=== PATIENT | male | born 1955 | race Caucasian/White ===

== ENCOUNTER → 2018-05-27 12:09 | Outpatient (CLI) | payer OTHER, SELFPAY ==
--- NOTE | 2018-05-27 | DI.MRI.S_ITS ---
PROCEDURE: MR KNEE RT WO CON INDICATIONS: Pain in right lower leg TECHNIQUE: Noncontrast sagittal PD fast spin echo and T2 fast spin echo with fat saturation, sagittal 3-D FLASH with fat saturation; coronal T1 spin echo and PD fast spin echo with fat saturation, and axial PD fast spin echo with fat saturation through the knee. COMPARISON: [facility], CR, XR KNEE ARTHRITIC SERIES RT, 04/28/2018, 13:43. FINDINGS: Image quality: Excellent. Menisci: Lateral meniscus appears intact. Ill-defined macerated tear involving the posterior root, posterior horn and body of the medial meniscus with complete extrusion of the medial meniscal body. Cruciate ligaments: Marked internal signal change of the anterior and posterior cruciate ligaments. In particular, there is marked T2 hyperintensity involving the substance of the PCL diffusely. This could represent severe mucoid degeneration versus partial rupture of the ACL and PCL. Medial structures: The medial collateral ligament appears thickened although technically age-indeterminate. This could represent chronic low-grade sprain. Semimembranosus appears grossly intact although mild insertional tendinopathy. Visualized portions of the pes anserinus tendons appear normal. No abnormal bursal fluid. Lateral structures: The lateral collateral ligament, long and short heads of the biceps femoris tendon appear intact. The popliteus tendon appears normal; the popliteofibular ligament appears intact. The posterosuperior and anteroinferior popliteomeniscal fascicles appear intact. The arcuate and fabellofibular ligaments appear intact, on either side of the lateral inferior geniculate artery. Iliotibial band appears normal. Anterior structures: The quadriceps tendon appears intact. There is diffuse patellar tendinopathy with edema and heterogeneous signal change in the prepatellar and superficial infrapatellar regions. There is also thickening of the distal patellar tendon at the tibial tuberosity with adjacent fluid/edema. Patellar alignment is normal. No femoral trochlear dysplasia or ventral trochlear prominence. No edema in the infrapatellar fat pad. Bones and cartilage: No bone marrow contusions or fractures. Within the medial compartment, there is diffuse full-thickness loss of the femoral and tibial articular cartilage with underlying marrow edema. Within the lateral compartment, there is diffuse partial thickness loss of the femoral articular cartilage. The tibial cartilage demonstrates central signal change without focal defect. Within the patellofemoral compartment, there is diffuse surface fraying partial-thickness loss of the patellar and femoral trochlear articular cartilage. Joint space: No pathologic joint effusion. No Lucia's cyst is seen. IMPRESSION: Medial meniscal tear involving the posterior root, posterior horn and body with near complete extrusion of the body. Marked intrasubstance signal changes involving the anterior cruciate ligament as well as posterior cruciate ligament. This appearance could represent severe mucoid degeneration although cannot exclude (probably chronic) partial rupture of the ACL and PCL. Please correlate with clinical exam findings. Diffuse severe patellar tendinopathy. Degenerative joint disease as above, most pronounced in the medial compartment. Dictated by: Ramiro Vazquez M.D. on 05/27/2018 at 17:04 Approved by: Ramiro Vazquez M.D. on 05/27/2018 at 17:20
== END ==
PROVIDERS: PCP Physician Assistant; Visit Provider Physician Assistant
DX: S83.241A Other tear of medial meniscus, current injury, right knee, initial encounter (principal); M17.11 Unilateral primary osteoarthritis, right knee; M79.661 Pain in right lower leg
CPT/HCPCS: 73721

== ENCOUNTER → 2019-12-12 17:28 | Outpatient (ROUT) | payer OTHER, MEDICARE, SELFPAY ==
[2019-12-12 17:43] LABS: Add Manual Diff / Slide Review NO; Basophils Absolute Auto 0 /uL (0-100); Basophils Percent Auto 0.7 % (0-2); Eosinophils Absolute Auto 200 /uL (0-450); Eosinophils Percent Auto 2.9 % (2-4); Hematocrit 40.8 % (41-53); Hemoglobin 13.6 g/dL (13.5-17.5); Lymphocytes Absolute Auto 1700 /uL (1100-4500); Lymphocytes Percent Auto 29.5 % (25-40); Mean Corpuscular HGB Conc 33.5 % (30-36); Mean Corpuscular Hemoglobin 31.8 PG (26-34); Mean Corpuscular Volume 94.9 fL (80-100); Monocytes Absolute Auto 800 /uL (0-900); Monocytes Percent Auto 14.1 % (3-14); Neutrophils Absolute Auto 3000 /uL (1500-7000); Neutrophils Percent Auto 52.8 % (50-75); Platelet Count 214 X10^3/uL (150-400); Red Blood Cell Count 4.29 X10^6/uL (4.5-5.9); Red Cell Distribution Width 13.8 % (11.6-14.8); White Blood Cell Count 5.6 X10^3/uL (4.5-11.0)
[2019-12-12 18:10] LABS: Hemoglobin A1C% w Est Avg Glu 6.2 % (4.0-6.0)
[2019-12-12 18:36] LABS: TSH w/ Reflex to FT4 1.89 uIU/mL (0.47-4.68)
[2019-12-12 19:09] LABS: Alanine Aminotransferase 43 IU/L (<50); Albumin 4.4 g/dL (3.5-5.0); Albumin Globulin Ratio 1.6 (1.0-2.8); Alkaline Phosphatase 87 U/L (38-126); Aspartate Aminotransferase 49 IU/L (17-59); BUN Creatinine Ratio 20.9 (6-22); Bilirubin Total 0.6 mg/dL (0.2-1.3); Blood Urea Nitrogen 23 mg/dL (9-20); Calcium 9.8 mg/dL (8.4-10.2); Carbon Dioxide 27 mmol/L (22-32); Chloride 105 mmol/L (98-107); Cholesterol 224 mg/dL (140-199); Estimated Glomerular Filt Rate > 60.0 mL/min (>60); Globulin 2.8 g/dL (1.7-4.1); Glucose 124 mg/dL (80-110); HDL Cholesterol 91 mg/dL (40-60); HEMOLYSIS < 15 (0-50); LDL Cholesterol Calculated 96 mg/dL (<100); Potassium 4.5 mmol/L (3.4-5.1); Sodium 141 mmol/L (137-145); Total Protein 7.2 g/dL (6.3-8.2); Triglycerides 183 mg/dL (35-150)
[2019-12-14 15:49] LABS: PSA Total 1.77 ng/mL (< 4.01)
== END ==
PROVIDERS: PCP Physician Assistant; Visit Provider Physician Assistant
DX: Z12.5 Encounter for screening for malignant neoplasm of prostate (principal); I10 Essential (primary) hypertension; R35.0 Frequency of micturition; R53.83 Other fatigue; R63.5 Abnormal weight gain
CPT/HCPCS: 80053; 80061; 83036; 84153; 84154; 84443; 85025

== ENCOUNTER → 2020-12-25 09:02 | Outpatient (CLI) | payer OTHER, MEDICARE, SELFPAY ==
--- NOTE | 2020-12-25 | DI.RAD.S_ITS ---
PROCEDURE: XR CHEST 2V INDICATIONS: SHORTNESS OF BREATH TECHNIQUE: 2 views of the chest were acquired. COMPARISON: [facility], CHEST 2 VIEW, 12/29/2016, 10:14. [facility], CHEST 2 VIEW, 08/26/2016, 17:11. FINDINGS: Surgical changes and devices: None. Lungs and pleura: Lungs appear clear. No consolidation. No pleural effusions or pneumothorax. Mediastinum: Mediastinal contours are normal. Heart size is within normal limits and unchanged. Bones and chest wall: No suspicious bony abnormalities. Soft tissues appear unremarkable. IMPRESSION: No acute cardiopulmonary abnormality. Dictated by: hTai Hernandez M.D. on 12/25/2020 at 10:49 Approved by: Thai Hernandez M.D. on 12/25/2020 at 10:51
[2020-12-25 10:36] LABS: Add Manual Diff / Slide Review NO; Basophils Absolute Auto 0 /uL (0-100); Basophils Percent Auto 0.8 % (0-2); Eosinophils Absolute Auto 200 /uL (0-450); Eosinophils Percent Auto 3.9 % (2-4); Hematocrit 39.6 % (41-53); Lymphocytes Absolute Auto 1600 /uL (1100-4500); Lymphocytes Percent Auto 28.3 % (25-40); Mean Corpuscular HGB Conc 32.9 % (30-36); Mean Corpuscular Hemoglobin 31.7 PG (26-34); Mean Corpuscular Volume 96.4 fL (80-100); Monocytes Absolute Auto 800 /uL (0-900); Monocytes Percent Auto 14.6 % (3-14); Neutrophils Absolute Auto 2900 /uL (1500-7000); Neutrophils Percent Auto 52.4 % (50-75); Platelet Count 202 X10^3/uL (150-400); Red Blood Cell Count 4.11 X10^6/uL (4.5-5.9); Red Cell Distribution Width 14.5 % (11.6-14.8); White Blood Cell Count 5.5 X10^3/uL (4.5-11.0)
[2020-12-25 10:46] LABS: Hemoglobin A1C% w Est Avg Glu 6.5 % (4.0-6.0)
[2020-12-25 11:05] LABS: Alanine Aminotransferase 36 IU/L (<50); Albumin 4.2 g/dL (3.5-5.0); Albumin Globulin Ratio 1.4 (1.0-2.8); Alkaline Phosphatase 84 U/L (38-126); Aspartate Aminotransferase 42 IU/L (17-59); BUN Creatinine Ratio 17.7 (6-22); Bilirubin Total 0.5 mg/dL (0.2-1.3); Blood Urea Nitrogen 17 mg/dL (9-20); Calcium 9.5 mg/dL (8.4-10.2); Carbon Dioxide 26 mmol/L (22-32); Chloride 104 mmol/L (98-107); Cholesterol 224 mg/dL (140-199); Estimated Glomerular Filt Rate > 60.0 mL/min (>60); Globulin 2.9 g/dL (1.7-4.1); Glucose 147 mg/dL (80-110); HDL Cholesterol 84 mg/dL (40-60); HEMOLYSIS < 15 (0-50); LDL Cholesterol Calculated 122 mg/dL (<100); Potassium 4.2 mmol/L (3.4-5.1); Sodium 136 mmol/L (137-145); Total Protein 7.1 g/dL (6.3-8.2); Triglycerides 92 mg/dL (35-150)
[2020-12-25 11:09] LABS: HEMOLYSIS < 15 (0-50); Iron 96 ug/dL (49-181)
[2020-12-25 11:13] LABS: NT-proBNP (BNP-Adult 18+) 79 pg/mL (<125)
[2020-12-25 11:19] LABS: Percent Iron Saturation 26 % (20-50); Total Iron Binding Capacity 369 ug/dL (261-462); Transferrin 274 mg/dL (206-381)
[2020-12-25 11:36] LABS: TSH w/ Reflex to FT4 1.49 uIU/mL (0.47-4.68)
[2020-12-25 11:39] LABS: Ferritin 48 ng/mL (18-464)
== END ==
PROVIDERS: PCP Physician Assistant; Referring Provider Physician Assistant; Visit Provider Physician Assistant
DX: R06.02 Shortness of breath (principal); R42 Dizziness and giddiness; E78.2 Mixed hyperlipidemia
CPT/HCPCS: 36415; 71046; 80053; 80061; 82728; 83036; 83540; 83550; 83880; 84443; 85025

== ENCOUNTER → 2021-01-08 09:44 | Outpatient (CLI) | payer OTHER, MEDICARE, SELFPAY ==
[2021-01-08 10:58] LABS: COVID19 -Nasal RAPID Negative (Negative)
== END ==
PROVIDERS: PCP Physician Assistant; Referring Provider Internal Medicine; Visit Provider Internal Medicine
DX: Z20.822 Contact with and (suspected) exposure to COVID-19 (principal)
CPT/HCPCS: 87635

== ENCOUNTER → 2021-01-09 10:59 | Outpatient (CLI) | payer OTHER, MEDICARE, SELFPAY ==
--- NOTE | 2021-01-15 10:28 | PM.PFT.1 ---
Pulmonary Function Test Referral & Results Date Patient Seen: 01/09/21 Requesting provider: Aditi Baez Results: The spirometry demonstrates an FVC of 4.21 L which is 80% of predicted. The FEV1 was measured at 3.17 L which is 81% of predicted. The FEV1/FVC ratio was 75 which is 101% of predicted. Following the administration of bronchodilator there was an 11% improvement in FEV1 and a 37% improvement in FEF 25-75%. Lung volumes show an SVC of 4.97 L which is 95% of predicted. The diffusing capacity was measured at 31.27 which is 82% of predicted. The maximum voluntary ventilation was normal Interpretation: This study demonstrates perhaps very mild obstructive lung disease based on slight reduction FEV1 although FEV1/FVC ratio was preserved there is some benefit following bronchodilator administration as demonstrated above with improvement in FEF 25-75% and very minimal improvement in FEV1 The remainder of the study should be considered normal
== END ==
PROVIDERS: PCP Physician Assistant; Referring Provider Physician Assistant; Visit Provider Physician Assistant
DX: R06.02 Shortness of breath (principal)
CPT/HCPCS: 94060; 94726; 94729

== ENCOUNTER → 2021-01-22 10:07 | Outpatient (CLI) | payer MEDICARE, OTHER, SELFPAY ==
[2021-01-22 11:30] LABS: COVID19 -Nasal RAPID Negative (Negative)
== END ==
PROVIDERS: PCP Physician Assistant; Visit Provider Physician Assistant
DX: Z01.812 Encounter for preprocedural laboratory examination (principal); Z20.822 Contact with and (suspected) exposure to COVID-19
CPT/HCPCS: 87635; C9803

== ENCOUNTER → 2021-01-24 15:00 | Outpatient (CLI) | payer MEDICARE, OTHER, SELFPAY ==
--- NOTE | 2021-01-24 23:45 | DI.NM.S_ITS ---
DATE OF SERVICE: 01/24/2021 PROCEDURE PERFORMED: Standard exercise treadmill stress test without imaging. ORDERING PROVIDER: Aditi Baez PA-C. INDICATION: The patient is a 65-year-old male with exertional dyspnea. FINDINGS: 1. The patient was able to exercise for 4 minutes 45 seconds on a standard Mendel protocol suggesting moderate-severely reduced exercise capacity with an BECK of +32%, achieving 7.0 METs. 2. The patient had a borderline accelerated heart rate response to exercise with a resting heart rate of 100 BPM that increased to a maximum of 156 BPM (101% of his predicted maximum). He had a moderate hypertensive blood pressure response to exercise with a resting blood pressure of 130/80 that increased to a maximum of 220/80. 3. He had no chest discomfort or anginal pain with exercise but had limiting severe dyspnea. Oxygen saturations remained 95 to 97% on room air throughout the study 4. Resting ECG shows sinus rhythm with a left anterior fascicular block with associated lateral T-wave abnormality but normal ST segments. With exercise, there were no significant ST-segment shifts. There were rare isolated PVCs, but no complex ectopy. IMPRESSION: 1. Normal exercise treadmill study with no ECG evidence for ischemia. 2. Moderate-severely reduced exercise capacity with limiting severe dyspnea, but no chest discomfort. He had an accelerated heart rate response to exercise and a hypertensive blood pressure response. Oxygen saturation remained normal throughout. Tobias Rowe - AIDA/marcelle/henrique doc#: [id number]/job#: [id number] dd: 01/24/2021 16:49:00 dt: 01/24/2021 17:42:00 DICTATING MD/COPIES TO: Karri Huitron MD; Aditi Baez PA-C COPIES MNE: IZZY;
== END ==
PROVIDERS: PCP Physician Assistant; Referring Provider Physician Assistant; Visit Provider Physician Assistant
DX: R06.09 Other forms of dyspnea (principal)
CPT/HCPCS: 93017

== ENCOUNTER → 2021-01-31 08:34 | Outpatient (CLI) | payer MEDICARE, OTHER, SELFPAY ==
--- NOTE | 2021-01-31 | DI.ECHO.S_ITS ---
[facility]---------+ [facility] +---------+ : : [address] : : : : [id number] : : : : Phone: [phone]---------+ Echocardiogram Report + + :Name: EVELYN CORTEZ Study Date: 01/31/2021 Height: 74 in : :[facility] ReadingLocation: Weight: 335 lb : : Gender: Male BSA: 2.7 m2 : :: 1955 Age: 65 yrs BP: 173/95 mmHg: :Reason For Study: SOB : :Ordering Physician: ART, : :ANDREW Performed By: Moises Toney : :Referring: ANDREW CORDOVA : + + Interpretation Summary 1) Normal left ventricular thickness, size, wall motion, and systolic function (EF 55-60%). 2) Normal right ventricular size and function. 3) No significant valvular abnormalities. 4) Pulmonary artery pressures cannot be estimated because of the lack of a measurable TR jet velocity but the IVC suggests a CVP of around 3 mmHg. 5) No prior Echo available for comparison. Procedure: A two-dimensional transthoracic echocardiogram with color flow and Doppler was performed. The study quality was technically adequate. There is no prior echocardiogram noted for this patient. The patient was in sinus rhythm with heart rates between 85-100 bpm during the exam. Left Ventricle: The left ventricle is normal in size and wall thickness. Left ventricular systolic function is normal. The ejection fraction is estimated to be 55-60%. There are no focal wall motion abnormalities. Diastolic parameters suggest probable normal left ventricular diastolic function and normal filling pressures. Right Ventricle: The right ventricle is normal in size and function. Atria: Both atria are normal in size. There is no Doppler evidence for an interatrial shunt. Mitral Valve: The mitral valve is normal in structure and function. There is no mitral regurgitation noted. Aortic Valve: The aortic valve is normal in structure and function. There is no aortic valve stenosis. No aortic regurgitation is present. Tricuspid Valve: The tricuspid valve is normal in structure and function. There is a trace or physiologic amount of tricuspid regurgitation. Pulmonary artery pressures cannot be estimated because of the lack of a measurable TR jet velocity but the IVC suggests a CVP of around 3 mmHg. Pulmonic Valve: The pulmonic valve is not well visualized. There is no pulmonic valvular regurgitation. Great Vessels: The aortic root is normal size. The dimensions of the ascending aorta are normal. The IVC is of normal diameter and collapses greater than 50% with a sniff. This suggests a low right atrial pressure of 3 mm Hg. Pericardium/ Pleura There is no pericardial effusion. There is no pleural effusion. MMode/2D Measurements & Calculations LVIDd: 5.6 cm LVOT diam: 2.5 cm LVIDs: 3.4 cm Ao root diam: 3.6 cm FS: 39.1 % asc Aorta Diam: 3.1 cm IVSd: 1.1 cm LVPWd: 1.0 cm LV moon. diameter/BSA (cm/m^2): 2.1 LV sys. diameter/BSA (cm/m^2): 1.3 LA A2 area: 18.5 cm2 RA long axis: 6.5 cm LA A4 area: 16.3 cm2 RA area: 18.1 cm2 LA length (vol): 5.3 cm RA vol: 43.1 ml LA vol: 48.7 ml RA : 15.9 ml/m2 LA vol index: 18.0 ml/m2 RVD1 (basal): 3.7 cm TAPSE: 2.3 cm Doppler Measurements & Calculations Ao V2 max: 167.4 cm/sec LVOT Max Rohit: 135.3 cm/sec Ao V2 mean: 120.5 cm/sec LV V1 max P.3 mmHg Ao max P.2 mmHg LV V1 VTI: 28.1 cm Ao mean P.3 mmHg JACQUIE(I,D): 4.2 cm2 Ao V2 VTI: 32.1 cm JACQUIE(V,D): 3.9 cm2 sev ratio: 0.88 JACQUIE indexed to BSA (cm^2/m^2): 1.6 MV E max rohit: 105.1 cm/sec PA pr(Accel): 43.0 mmHg MV A max rohit: 109.1 cm/sec MV E/A: 0.96 Med Peak E' Rohit: 8.9 cm/sec E/E' med: 11.8 Lat Peak E' Rohit: 11.6 cm/sec E/E' lat: 9.0 E/e' average: 10.4 MV dec time: 0.17 sec SV(LVOT): 135.1 ml Reading Physician:12:22 PM
== END ==
PROVIDERS: PCP Physician Assistant; Referring Provider Physician Assistant; Visit Provider Physician Assistant
DX: R06.02 Shortness of breath (principal)
CPT/HCPCS: 93306

== ENCOUNTER → 2022-07-08 13:52 | Outpatient (CLI) | payer MEDICARE, OTHER, SELFPAY ==
--- NOTE | 2022-07-15 14:08 | DIAB.MNT ---
Initial Diabetes Medical Nutrition Therapy Assessment Name: Tobias Rowe Date: 07/08/22 Time: 2-3p Dx: Type II Diabetes Provider: Nestor Collado presents today for initial visit accompanied by his , Kathleen. +FH of DM with father. Also paternal hx of CVD, HLD, and RI. Newly dx with T2Dm with HgA1c of 6.6%. States he does not feel any symptoms and is surprised by this diagnosis. Reports he eats pretty good, though does endorse excessive wine intake. Often 3 servings per night but per food journal may be up to 4 +/- shot of liquor. Has cut down on coffee over the last year. States he is trying to lose weight. Has already lost a reported 15# since diagnosis. States he has sleep apnea but not currently using cpap due to discomfort and loud sound. Diet Recall: 7a: coffee, eggs, sausage or plain oats x 1pkt with berries 1p: low crab tortilla with meat and cheese or nothing or nuts 730-8p: veggies, lean burger meat and cheese States he often gets too busy at work to eat lunch and limited appetite at dinner. Very busy with work. Anthropometrics: Ht: 5'11 Wt: 344# reported Weight history: States he was 360# at diagnosis. Physical Activity: 1.5 mi + at work. Trying to walk more at work. Had recent foot injury at work, but plans to walk on weekends. Current steps 2732-0099 per day. Self-Monitoring Blood Glucose: 3-4 x per week. Occasional elevations in the morning, but unclear if these are truly fasting numbers. Currently regimen is checking BG at random times in the day. Could be after coffee. Date Pre Post Pre Post Pre Post HS 05/31 127 06/02 173 06/05 112 9/6 113 06/24 136 07/07 154 <1hr 07/08 135 Diabetes Medications: None Pertinent Labs: 04/2022 HgA1c 6.6% T Cholesterol: 216 H HDL: 76 LDL: 120 H Past Medical History: T2Dm Obesity Mixed HLD cataract HTN GERD KOLE Restless legs syndrome osteoarthritis of r knee Nutrition Rx: Carbohydrates: Meal:45g based on diet recall Snack: 15-30g Nutrition Diagnosis: - Nutrition knowledge deficit r/t new dx of T2DM aeb HgA1c, referral, and pt report - Physical inactivity r/t foot injury aeb pt report - Excessive ETOH intake r/t stage of change and knowledge deficit aeb pt report and diet recall Intervention: This participant was very receptive. Provided appropriate educational handouts. Discussed the following topics: Completed intake assessment. Discussed barriers to care. Pathophysiology of T2DM HgA1c, its correlation to blood glucose numbers, and rationale for goal Importance of self-monitoring, how often, and when to check. Suggested checking at different times to evaluate meals Plate Method, impact of macronutrients on blood sugar, meal timing, carbohydrate counting, pairing macronutrients and spreading out carbohydrates for better blood glucose management Recommended servings for carbohydrates at meals and snacks Heart health nutrition ETOH recs and impact on health Impact of sleep on BG Role of physical activity and following guidelines for safety Created SMART goals for patient self-care and success. Goals: Start walking this weekend 20-30 min per day Keep wine to 2 servings or less Fit in a lunch/snack mid day Follow-up: RITA OROZCO follow-up in 4 weeks. Offered DSME classes. With his current schedule he may opt for October classes. 1:1 f/u scheduled. Kimberly Phillips RDN, JAYSHREEES Certified Diabetes Care and Process Controller P: [phone] Thank you for this referral
== END ==
PROVIDERS: PCP Physician Assistant; Referring Provider Internal Medicine; Visit Provider Internal Medicine
DX: E11.9 Type 2 diabetes mellitus without complications (principal); Z71.3 Dietary counseling and surveillance
CPT/HCPCS: 97802

== ENCOUNTER 2024-02-06 16:34 | Emergency (ER) | payer MEDICARE, OTHER, SELFPAY ==
[2024-02-06] VITALS (14 sets, daily range): BP systolic 117–159; BP diastolic 56–88; PULSE 78–127; RESP 16–29; TEMP 37.1–38.2; O2SAT 94–98; BMI 43.0
--- NOTE | 2024-02-06 16:49 | DI.RAD.S_ITS ---
PROCEDURE: XR CHEST 1V INDICATIONS: Shortness of breath TECHNIQUE: One view of the chest was acquired. COMPARISON: [facility], CR, XR CHEST 2V, 12/25/2020, 9:06. FINDINGS: Surgical changes and devices: None. Lungs and pleura: Low lung volumes which exaggerate pulmonary markings. Lungs are clear. No pleural effusions or pneumothorax. Mediastinum: Mediastinal contours appear normal. Heart size is normal. Bones and chest wall: No suspicious bony lesions. Overlying soft tissues appear unremarkable. IMPRESSION: No acute cardiopulmonary abnormality is seen. Dictated by: Arturo Cali M.D. on 02/06/2024 at 16:17 Approved by: Arturo Cali M.D. on 02/06/2024 at 16:20
--- NOTE | 2024-02-06 17:15 | ED.MALEGU ---
HPI - Male Genitourinary <Arturo Gutierres MD - Last Filed: 02/16/24 07:41> General Chief complaint: Shortness of Breath/Dyspnea Stated complaint: sweating, chills, 100.6 temp, SOB Time Seen by Provider: 02/06/24 17:01 History of Present Illness HPI Narrative: Patient here with . Complains of fever 101.6 at home. Took Tylenol at 2:00 p.m.. Heart rate noted. Recheck of temperature shows 100.7 here. Patient denies any dyspnea. He states he was short of breath because he was anxious. His family was bothering him to come here. He got anxious. He does not feel short of breath now. He has clear lung sounds speaking full sentences. He states in the past 3 months has had dysuria and frequency. Poor appetite. Has had nausea. Related Data Home Medications Medication Instructions Recorded Confirmed cholecalciferol (vitamin D3) 50 2,000 iu PO QDAY ##0 12/11/12 01/21/24 mcg (2,000 unit) capsule (Vitamin D3) Previous Rx's Medication Instructions Recorded gabapentin 600 mg tablet 300 mg (1/2 x 600 mg) PO HS ##30 04/05/13 (Neurontin) gabapentin 600 mg tablet 600 mg PO HS ##90 04/05/13 (Neurontin) Allergies Allergy/AdvReac Type Severity Reaction Status Date / Time No Known Drug Allergies Allergy Verified 02/06/24 16:45 Review of Systems <Arturo Gutierres MD - Last Filed: 02/16/24 07:41> Review of Systems Narrative: GENERAL: Positive chills, fatigue, malaise, fever, sweats. HEENT: negative sinus pain, ear pain, sore throat RESPIRATORY: negative dyspnea, cough CARDIOVASCULAR: negative chest pain, palpitations GASTROINTESTINAL: Positive nausea, negative vomiting, positive abdominal pain : Positive dysuria, frequency, negative hematuria MUSCULOSKELETAL: negative muscle or bony pain SKIN: negative rash, skin lesions NEUROLOGIC: negative weakness, numbness ROS Unobtainable: All systems reviewed & are unremarkable except as noted in HPI and below Patient History <Arturo Gutierres MD - Last Filed: 02/16/24 07:41> Social History Smoking Status: Never smoker Smoking Status: Never smoker alcohol intake frequency: 0-2 drinks per day Substance Use Type: does not use Exam <Arturo Gutierres MD - Last Filed: 02/16/24 07:41> Narrative Exam Narrative: GENERAL: in no distress, not toxic not dyspneic HEAD: Normocephalic. EYES: Pupils equal round ENT: Mucous membranes moist. NECK: Trachea midline. CARDIOVASCULAR: Tachycardia with Regular rate and rhythm RESPIRATORY: Clear to auscultation. Breath sounds equal bilaterally. No wheezes, rales, or rhonchi. GASTROINTESTINAL: Abdomen soft, non-tender, no peritoneal signs bowel sounds are present. No suprapubic or CVA tenderness. No pain out of proportion to exam EXTREMITIES: No gross deformities. BACK: No flank tenderness. NEURO: AOx4. SKIN: Warm and dry PSYCH: Not anxious, is cooperative Initial Vital Signs Initial Vital Signs: Vital Signs Temperature 100.7 F H 02/06/24 16:41 Pulse Rate 127 H 02/06/24 16:41 Respiratory Rate 24 02/06/24 16:41 Blood Pressure 159/88 H 02/06/24 16:41 Pulse Oximetry 98 02/06/24 16:41 Oxygen Delivery Method Room Air 02/06/24 16:41 <Beti Bhakta DO - Last Filed: 02/07/24 02:39> Initial Vital Signs Initial Vital Signs: Vital Signs Temperature 100.7 F H 02/06/24 16:41 Pulse Rate 127 H 02/06/24 16:41 Respiratory Rate 24 02/06/24 16:41 Blood Pressure 159/88 H 02/06/24 16:41 Pulse Oximetry 98 02/06/24 16:41 Oxygen Delivery Method Room Air 02/06/24 16:41 Course <Arturo Gutierres MD - Last Filed: 02/16/24 07:41> Orders Ordered: Discontinued Medications Acetaminophen (Acetaminophen 325 Mg Tablet) 975 mg PO NOW ONE Stop: 02/06/24 17:02 Last Admin: 02/06/24 17:11 Dose: Not Given Documented By: RLS Albuterol/Ipratropium (Albuterol/Ipratropium 3 Ml Ampul) 3 ml INH NOW ONE Stop: 02/06/24 17:02 Last Admin: 02/06/24 17:31 Dose: Not Given Documented By: KF Sodium Chloride (Normal Saline 0.9%) 1,000 mls @ 1,000 mls/hr IV BOLUS ONE Stop: 02/06/24 18:12 Last Infusion: 02/06/24 20:06 Dose: Infused Documented By: Admin: 02/06/24 18:00 Dose: 1,000 mls/hr Documented By: VIKKI Ceftriaxone Sodium 2,000 mg/ (Sodium Chloride) 100 mls @ 200 mls/hr IV NOW ONE Stop: 02/06/24 17:49 Last Infusion: 02/06/24 19:30 Dose: Infused Documented By: Admin: 02/06/24 18:00 Dose: 200 mls/hr Documented By: VIKKI Ibuprofen (Ibuprofen 400 Mg Tablet) 800 mg PO NOW ONE Stop: 02/06/24 17:14 Last Admin: 02/06/24 18:00 Dose: 800 mg Documented By: VIKKI Vital Signs Vital signs: Vital Signs - 8 hr 02/06/24 19:00 02/06/24 19:17 02/06/24 19:30 Temperature 99.1 F Pulse Rate 86 88 Respiratory Rate 19 29 H Blood Pressure Pulse Oximetry 95 94 02/06/24 19:49 02/06/24 19:49 02/06/24 20:00 Temperature Pulse Rate 79 Respiratory Rate 16 Blood Pressure 117/56 L 118/56 L Pulse Oximetry 95 02/06/24 20:00 Temperature Pulse Rate 78 Respiratory Rate 29 H Blood Pressure Pulse Oximetry 94 <Beti Bhakta, - Last Filed: 02/07/24 02:39> Orders Ordered: Discontinued Medications Acetaminophen (Acetaminophen 325 Mg Tablet) 975 mg PO NOW ONE Stop: 02/06/24 17:02 Last Admin: 02/06/24 17:11 Dose: Not Given Documented By: HEIDY Albuterol/Ipratropium (Albuterol/Ipratropium 3 Ml Ampul) 3 ml INH NOW ONE Stop: 02/06/24 17:02 Last Admin: 02/06/24 17:31 Dose: Not Given Documented By: VIKKI Sodium Chloride (Normal Saline 0.9%) 1,000 mls @ 1,000 mls/hr IV BOLUS ONE Stop: 02/06/24 18:12 Last Infusion: 02/06/24 20:06 Dose: Infused Documented By: Admin: 02/06/24 18:00 Dose: 1,000 mls/hr Documented By: VIKKI Ceftriaxone Sodium 2,000 mg/ (Sodium Chloride) 100 mls @ 200 mls/hr IV NOW ONE Stop: 02/06/24 17:49 Last Infusion: 02/06/24 19:30 Dose: Infused Documented By: Admin: 02/06/24 18:00 Dose: 200 mls/hr Documented By: VIKKI Ibuprofen (Ibuprofen 400 Mg Tablet) 800 mg PO NOW ONE Stop: 02/06/24 17:14 Last Admin: 02/06/24 18:00 Dose: 800 mg Documented By: VIKKI Vital Signs Vital signs: Vital Signs - 8 hr 02/06/24 19:00 02/06/24 19:17 02/06/24 19:30 Temperature 99.1 F Pulse Rate 86 88 Respiratory Rate 19 29 H Blood Pressure Pulse Oximetry 95 94 02/06/24 19:49 02/06/24 19:49 02/06/24 20:00 Temperature Pulse Rate 79 Respiratory Rate 16 Blood Pressure 117/56 L 118/56 L Pulse Oximetry 95 02/06/24 20:00 Temperature Pulse Rate 78 Respiratory Rate 29 H Blood Pressure Pulse Oximetry 94 MDM - Male Genitourinary <Arturo Gutierres MD - Last Filed: 02/16/24 07:41> Lab Data 02/06/24 16:58 02/06/24 16:58 Labs: Lab Results 02/06/24 02/06/24 02/06/24 Range/Units 16:58 17:01 17:18 WBC 10.8 (4.5-11.0) X10^3/uL RBC 3.70 L (4.5-5.9) X10^6/uL Hgb 12.3 L (13.5-17.5) g/dL Hct 36.0 L (41-53) % MCV 97.5 (80-100) fL MCH 33.4 (26-34) PG MCHC 34.3 (30-36) % RDW 15.4 H (11.6-14.8) % Plt Count 232 (150-400) X10^3/uL Neut % (Auto) 69.5 (50-75) % Lymph % (Auto) 15.4 L (25-40) % [place] % (Auto) 13.3 (3-14) % Eos % (Auto) 1.3 L (2-4) % Baso % (Auto) 0.5 (0-2) % Neut # (Auto) 7500 H (6035-5712) /uL Lymph # (Auto) 1700 (8504-1880) /uL [place] # (Auto) 1400 H (0-900) /uL Eos # (Auto) 100 (0-450) /uL Baso # (Auto) 100 (0-100) /uL PT 13.8 H (9.4-12.5) SECONDS INR 1.2 (0.9-1.3) Sodium 136 L (137-145) mmol/L Potassium 4.0 (3.4-5.1) mmol/L Chloride 102 (98-107) mmol/L Carbon Dioxide 23 (22-32) mmol/L BUN 22 H (9-20) mg/dL Creatinine 1.67 H (0.66-1.25) mg/dL Estimated GFR 44 L (>60) mL/min BUN/Creatinine Ratio 13.2 (6-22) Glucose 180 H (80-110) mg/dL Lactate 3.4 H (0.7-2.1) mmol/L Calcium 9.5 (8.4-10.2) mg/dL Total Bilirubin 0.6 (0.2-1.3) mg/dL AST 27 (17-59) IU/L ALT 20 (<50) IU/L Alkaline Phosphatase 110 (38-126) U/L Troponin I < 0.012 (0.01-0.034) ng/mL NT-Pro-B Natriuret Pep 311 H (<125) pg/mL Total Protein 7.6 (6.3-8.2) g/dL Albumin 4.5 (3.5-5.0) g/dL Globulin 3.1 (1.7-4.1) g/dL Albumin/Globulin Ratio 1.5 (1.0-2.8) Procalcitonin 1.63 H (<0.5) ng/mL Urine Color Yellow Urine Appearance Clear Urine pH 5.0 (4.5-8.0) Ur Specific [place] 1.020 (1.000-1.035) Urine Protein 1+ H (Negative) Urine Glucose (UA) Negative (Negative) g/dL Urine Ketones Trace H (NEGATIVE) Urine Occult Blood 1+ H (Negative) Urine Nitrate Negative (Negative) Urine Bilirubin 1+ H (NEGATIVE) Ur Bilirubin Confirm Negative (Negative) Urine Urobilinogen 1.0 (0.2) E.U./dL Ur Leukocyte Esterase 2+ H (NEGATIVE) Urine RBC 1-5/hpf (0-5/HPF) Urine WBC 10-30/hpf H (0-5/HPF) Ur Squamous Epith Cells None seen (0-5/HPF) Urine Bacteria None seen (None) Hyaline Casts 1-5/lpf (None) Ur Culture Indicated? Specimen cultured Vol Urine Centrifuged 10ml (spun) Chlamy pneumoniae PCR Not detected (Not Detect) Adenovirus (PCR) Not detected (Not Detect) B.parapertussis DNA PCR Not detected (Not Detecte) Coronavirus OC43 (PCR) Not detected (Not Detect) Coronavirus HKU1 (PCR) Not detected (Not Detect) Coronavirus 229E (PCR) Not detected (Not Detect) SARS-CoV-2 (PCR) Not detected (Not Detecte) Coronavirus NL63 (PCR) Not detected (Not Detect) Human Metapneumovir PCR Not detected (Not Detect) Influenza Type A (PCR) Not detected (Not Detect) Influenza Type B (PCR) Not detected (Not Detect) M. pneumoniae (PCR) Not detected (Not Detect) Parainfluenza 1 (PCR) Not detected (Not Detect) Parainfluenza 2 (PCR) Not detected (Not Detect) Parainfluenza 3 (PCR) Not detected (Not Detect) Parainfluenza 4 (PCR) Not detected (Not Detect) RSV (PCR) Not detected (Not Detect) Entero/Rhino (PCR) Not detected (Not Detect) 02/06/24 Range/Units 18:53 WBC (4.5-11.0) X10^3/uL RBC (4.5-5.9) X10^6/uL Hgb (13.5-17.5) g/dL Hct (41-53) % MCV (80-100) fL MCH (26-34) PG MCHC (30-36) % RDW (11.6-14.8) % Plt Count (150-400) X10^3/uL Neut % (Auto) (50-75) % Lymph % (Auto) (25-40) % [place] % (Auto) (3-14) % Eos % (Auto) (2-4) % Baso % (Auto) (0-2) % Neut # (Auto) (7582-1850) /uL Lymph # (Auto) (5568-3040) /uL [place] # (Auto) (0-900) /uL Eos # (Auto) (0-450) /uL Baso # (Auto) (0-100) /uL PT (9.4-12.5) SECONDS INR (0.9-1.3) Sodium (137-145) mmol/L Potassium (3.4-5.1) mmol/L Chloride (98-107) mmol/L Carbon Dioxide (22-32) mmol/L BUN (9-20) mg/dL Creatinine (0.66-1.25) mg/dL Estimated GFR (>60) mL/min BUN/Creatinine Ratio (6-22) Glucose (80-110) mg/dL Lactate 1.3 (0.7-2.1) mmol/L Calcium (8.4-10.2) mg/dL Total Bilirubin (0.2-1.3) mg/dL AST (17-59) IU/L ALT (<50) IU/L Alkaline Phosphatase (38-126) U/L Troponin I (0.01-0.034) ng/mL NT-Pro-B Natriuret Pep (<125) pg/mL Total Protein (6.3-8.2) g/dL Albumin (3.5-5.0) g/dL Globulin (1.7-4.1) g/dL Albumin/Globulin Ratio (1.0-2.8) Procalcitonin (<0.5) ng/mL Urine Color Urine Appearance Urine pH (4.5-8.0) Ur Specific [place] (1.000-1.035) Urine Protein (Negative) Urine Glucose (UA) (Negative) g/dL Urine Ketones (NEGATIVE) Urine Occult Blood (Negative) Urine Nitrate (Negative) Urine Bilirubin (NEGATIVE) Ur Bilirubin Confirm (Negative) Urine Urobilinogen (0.2) E.U./dL Ur Leukocyte Esterase (NEGATIVE) Urine RBC (0-5/HPF) Urine WBC (0-5/HPF) Ur Squamous Epith Cells (0-5/HPF) Urine Bacteria (None) Hyaline Casts (None) Ur Culture Indicated? Vol Urine Centrifuged Chlamy pneumoniae PCR (Not Detect) Adenovirus (PCR) (Not Detect) B.parapertussis DNA PCR (Not Detecte) Coronavirus OC43 (PCR) (Not Detect) Coronavirus HKU1 (PCR) (Not Detect) Coronavirus 229E (PCR) (Not Detect) SARS-CoV-2 (PCR) (Not Detecte) Coronavirus NL63 (PCR) (Not Detect) Human Metapneumovir PCR (Not Detect) Influenza Type A (PCR) (Not Detect) Influenza Type B (PCR) (Not Detect) M. pneumoniae (PCR) (Not Detect) Parainfluenza 1 (PCR) (Not Detect) Parainfluenza 2 (PCR) (Not Detect) Parainfluenza 3 (PCR) (Not Detect) Parainfluenza 4 (PCR) (Not Detect) RSV (PCR) (Not Detect) Entero/Rhino (PCR) (Not Detect) [facility] Narrative Medical decision making narrative: Patient here with . Complains of fever 101.6 at home. Took Tylenol at 2:00 p.m.. Heart rate noted. Recheck of temperature shows 100.7 here. Patient denies any dyspnea. He states he was short of breath because he was anxious. His family was bothering him to come here. He got anxious. He does not feel short of breath now. He has clear lung sounds speaking full sentences. He states in the past 3 months has had dysuria and frequency. Poor appetite. Has had nausea. After history and exam CBC CMP urinalysis respiratory panel ibuprofen chest x-ray troponin EKG [facility] Medical records reviewed: No recent visit for this complaint Differential considered: Includes but not limited to sepsis UTI pyelonephritis Lab Test results independently reviewed as above. Pertinent findings: WBC 10.8 hemoglobin 12.3 INR 1.2 sodium 136 potassium 4.0 BUN 22 creatinine 1.67 GFR 44 lactic acid 3.4 troponin less than 0.012 BNP 311 urinalysis 1+ blood negative nitrate 2+ leukocyte esterase Independently reviewed EKG sinus tachycardia rate 113 Imaging studies independently reviewed: Chest x-ray no acute finding Consultations: Treatments: Normal saline ibuprofen Rocephin Re-evaluations: Discussion: Diagnosis: 6:00 p.m. Nenita: Sign out to Dr Bhakta, CT imaging pending. Antibiotics have been started. Normal saline given as well. <Beti Bhakta, DO - Last Filed: 02/07/24 02:39> Lab Data Labs: Lab Results 02/06/24 02/06/24 02/06/24 Range/Units 16:58 17:01 17:18 WBC 10.8 (4.5-11.0) X10^3/uL RBC 3.70 L (4.5-5.9) X10^6/uL Hgb 12.3 L (13.5-17.5) g/dL Hct 36.0 L (41-53) % MCV 97.5 (80-100) fL MCH 33.4 (26-34) PG MCHC 34.3 (30-36) % RDW 15.4 H (11.6-14.8) % Plt Count 232 (150-400) X10^3/uL Neut % (Auto) 69.5 (50-75) % Lymph % (Auto) 15.4 L (25-40) % [place] % (Auto) 13.3 (3-14) % Eos % (Auto) 1.3 L (2-4) % Baso % (Auto) 0.5 (0-2) % Neut # (Auto) 7500 H (9176-7961) /uL Lymph # (Auto) 1700 (8125-9393) /uL [place] # (Auto) 1400 H (0-900) /uL Eos # (Auto) 100 (0-450) /uL Baso # (Auto) 100 (0-100) /uL PT 13.8 H (9.4-12.5) SECONDS INR 1.2 (0.9-1.3) Sodium 136 L (137-145) mmol/L Potassium 4.0 (3.4-5.1) mmol/L Chloride 102 (98-107) mmol/L Carbon Dioxide 23 (22-32) mmol/L BUN 22 H (9-20) mg/dL Creatinine 1.67 H (0.66-1.25) mg/dL Estimated GFR 44 L (>60) mL/min BUN/Creatinine Ratio 13.2 (6-22) Glucose 180 H (80-110) mg/dL Lactate 3.4 H (0.7-2.1) mmol/L Calcium 9.5 (8.4-10.2) mg/dL Total Bilirubin 0.6 (0.2-1.3) mg/dL AST 27 (17-59) IU/L ALT 20 (<50) IU/L Alkaline Phosphatase 110 (38-126) U/L Troponin I < 0.012 (0.01-0.034) ng/mL NT-Pro-B Natriuret Pep 311 H (<125) pg/mL Total Protein 7.6 (6.3-8.2) g/dL Albumin 4.5 (3.5-5.0) g/dL Globulin 3.1 (1.7-4.1) g/dL Albumin/Globulin Ratio 1.5 (1.0-2.8) Procalcitonin 1.63 H (<0.5) ng/mL Urine Color Yellow Urine Appearance Clear Urine pH 5.0 (4.5-8.0) Ur Specific [place] 1.020 (1.000-1.035) Urine Protein 1+ H (Negative) Urine Glucose (UA) Negative (Negative) g/dL Urine Ketones Trace H (NEGATIVE) Urine Occult Blood 1+ H (Negative) Urine Nitrate Negative (Negative) Urine Bilirubin 1+ H (NEGATIVE) Ur Bilirubin Confirm Negative (Negative) Urine Urobilinogen 1.0 (0.2) E.U./dL Ur Leukocyte Esterase 2+ H (NEGATIVE) Urine RBC 1-5/hpf (0-5/HPF) Urine WBC 10-30/hpf H (0-5/HPF) Ur Squamous Epith Cells None seen (0-5/HPF) Urine Bacteria None seen (None) Hyaline Casts 1-5/lpf (None) Ur Culture Indicated? Specimen cultured Vol Urine Centrifuged 10ml (spun) Chlamy pneumoniae PCR Not detected (Not Detect) Adenovirus (PCR) Not detected (Not Detect) B.parapertussis DNA PCR Not detected (Not Detecte) Coronavirus OC43 (PCR) Not detected (Not Detect) Coronavirus HKU1 (PCR) Not detected (Not Detect) Coronavirus 229E (PCR) Not detected (Not Detect) SARS-CoV-2 (PCR) Not detected (Not Detecte) Coronavirus NL63 (PCR) Not detected (Not Detect) Human Metapneumovir PCR Not detected (Not Detect) Influenza Type A (PCR) Not detected (Not Detect) Influenza Type B (PCR) Not detected (Not Detect) M. pneumoniae (PCR) Not detected (Not Detect) Parainfluenza 1 (PCR) Not detected (Not Detect) Parainfluenza 2 (PCR) Not detected (Not Detect) Parainfluenza 3 (PCR) Not detected (Not Detect) Parainfluenza 4 (PCR) Not detected (Not Detect) RSV (PCR) Not detected (Not Detect) Entero/Rhino (PCR) Not detected (Not Detect) 02/06/24 Range/Units 18:53 WBC (4.5-11.0) X10^3/uL RBC (4.5-5.9) X10^6/uL Hgb (13.5-17.5) g/dL Hct (41-53) % MCV (80-100) fL MCH (26-34) PG MCHC (30-36) % RDW (11.6-14.8) % Plt Count (150-400) X10^3/uL Neut % (Auto) (50-75) % Lymph % (Auto) (25-40) % [place] % (Auto) (3-14) % Eos % (Auto) (2-4) % Baso % (Auto) (0-2) % Neut # (Auto) (1458-5405) /uL Lymph # (Auto) (1574-1095) /uL [place] # (Auto) (0-900) /uL Eos # (Auto) (0-450) /uL Baso # (Auto) (0-100) /uL PT (9.4-12.5) SECONDS INR (0.9-1.3) Sodium (137-145) mmol/L Potassium (3.4-5.1) mmol/L Chloride (98-107) mmol/L Carbon Dioxide (22-32) mmol/L BUN (9-20) mg/dL Creatinine (0.66-1.25) mg/dL Estimated GFR (>60) mL/min BUN/Creatinine Ratio (6-22) Glucose (80-110) mg/dL Lactate 1.3 (0.7-2.1) mmol/L Calcium (8.4-10.2) mg/dL Total Bilirubin (0.2-1.3) mg/dL AST (17-59) IU/L ALT (<50) IU/L Alkaline Phosphatase (38-126) U/L Troponin I (0.01-0.034) ng/mL NT-Pro-B Natriuret Pep (<125) pg/mL Total Protein (6.3-8.2) g/dL Albumin (3.5-5.0) g/dL Globulin (1.7-4.1) g/dL Albumin/Globulin Ratio (1.0-2.8) Procalcitonin (<0.5) ng/mL Urine Color Urine Appearance Urine pH (4.5-8.0) Ur Specific [place] (1.000-1.035) Urine Protein (Negative) Urine Glucose (UA) (Negative) g/dL Urine Ketones (NEGATIVE) Urine Occult Blood (Negative) Urine Nitrate (Negative) Urine Bilirubin (NEGATIVE) Ur Bilirubin Confirm (Negative) Urine Urobilinogen (0.2) E.U./dL Ur Leukocyte Esterase (NEGATIVE) Urine RBC (0-5/HPF) Urine WBC (0-5/HPF) Ur Squamous Epith Cells (0-5/HPF) Urine Bacteria (None) Hyaline Casts (None) Ur Culture Indicated? Vol Urine Centrifuged Chlamy pneumoniae PCR (Not Detect) Adenovirus (PCR) (Not Detect) B.parapertussis DNA PCR (Not Detecte) Coronavirus OC43 (PCR) (Not Detect) Coronavirus HKU1 (PCR) (Not Detect) Coronavirus 229E (PCR) (Not Detect) SARS-CoV-2 (PCR) (Not Detecte) Coronavirus NL63 (PCR) (Not Detect) Human Metapneumovir PCR (Not Detect) Influenza Type A (PCR) (Not Detect) Influenza Type B (PCR) (Not Detect) M. pneumoniae (PCR) (Not Detect) Parainfluenza 1 (PCR) (Not Detect) Parainfluenza 2 (PCR) (Not Detect) Parainfluenza 3 (PCR) (Not Detect) Parainfluenza 4 (PCR) (Not Detect) RSV (PCR) (Not Detect) Entero/Rhino (PCR) (Not Detect) Imaging Data CT chest/abd/pelvis: Radiologist's Impression: [address] [address] [address] Scan Report Signed Patient: Tobias Rowe MR#: [id number] : 1955 Acct:[id number] Age/Sex: 68 / M Date of Service: 02/06/24 Loc: ED Accession Number: [id number] Procedure: CT chest abd pel wo con Ordering Provider: Arturo Gutierres MD PROCEDURE: CT CHEST ABD PEL WO CON INDICATIONS: Sepsis TECHNIQUE: After the administration of oral contrast, 5 mm thick sections acquired from the lung apices to the symphysis pubis. 5 mm thick coronal and sagittal reformats acquired, with additional 7 mm coronal MIP reformats through the lungs. For radiation dose reduction, the following was used: automated exposure control, adjustment of mA and/or kV according to patient size. COMPARISON: None. FINDINGS: Image quality: Diagnostic. CHEST: Lower Neck: No enlarged lymph nodes. Thyroid: 2 cm right thyroid nodule. Axillae: No enlarged lymph nodes. Chest Wall: Unremarkable. Bones: Unremarkable. Lungs and Pleura: No pneumothorax or pleural effusions. No consolidation or suspicious nodules. Heart: Heart size is enlarged. No pericardial effusion. Mild coronary artery disease. Thoracic Vessels: The aorta and pulmonary arteries demonstrate normal size. Mediastinum and Gracy: No enlarged lymph nodes. Esophagus: No wall thickening. No hiatal hernia. ABDOMEN: Liver: No solid mass. Gallbladder: The gallbladder is contracted. Biliary ducts: No biliary dilation. Pancreas: No ductal dilation. Spleen: Size is within normal limits. Adrenal Glands: No adrenal nodules. Kidneys and Ureters: No hydronephrosis. No solid mass. No complex renal cystic lesion which requires follow up. There is fat stranding surrounding the bilateral kidneys descending along the ureters with inflammatory changes extending down to the bladder within the retroperitoneal fat Stomach and Bowel: Normal colonic caliber, without significant wall thickening. A few colonic diverticula. Normal appendix. Peritoneum: No abnormal intraperitoneal fluid. No free air. Ventral Wall: No hernia. Abdominal Nodes: No retroperitoneal or mesenteric adenopathy by size criteria. Vessels: Aorta and inferior vena cava are normal in size. PELVIS: Pelvic Organs: Unremarkable. Bladder: Unremarkable. Pelvic Nodes: No enlarged lymph nodes. Miscellaneous: No inguinal hernias are seen. Bones: No aggressive osseous abnormality. IMPRESSION: Inflammatory changes extending in the retroperitoneal fat from the kidneys along the ureters down to the bladder. This is concerning for ascending urinary infection, correlate with UA. Dictated by: Arturo Cali M.D. on 02/06/2024 at 17:49 Approved by: Arturo Cali M.D. on 02/06/2024 at 17:56 [facility] Narrative Medical decision making narrative: Patient here with . Complains of fever 101.6 at home. Took Tylenol at 2:00 p.m.. Heart rate noted. Recheck of temperature shows 100.7 here. Patient denies any dyspnea. He states he was short of breath because he was anxious. His family was bothering him to come here. He got anxious. He does not feel short of breath now. He has clear lung sounds speaking full sentences. He states in the past 3 months has had dysuria and frequency. Poor appetite. Has had nausea. After history and exam CBC CMP urinalysis respiratory panel ibuprofen chest x-ray troponin EKG [facility] Medical records reviewed: No recent visit for this complaint Differential considered: Includes but not limited to sepsis UTI pyelonephritis Lab Test results independently reviewed as above. Pertinent findings: WBC 10.8 hemoglobin 12.3 INR 1.2 sodium 136 potassium 4.0 BUN 22 creatinine 1.67 GFR 44 lactic acid 3.4 troponin less than 0.012 BNP 311 urinalysis 1+ blood negative nitrate 2+ leukocyte esterase Independently reviewed EKG sinus tachycardia rate 113 Imaging studies independently reviewed: Chest x-ray no acute finding Consultations: Treatments: Normal saline ibuprofen Rocephin Re-evaluations: Discussion: Diagnosis: 6:00 p.m. Brennick: Sign out to Dr Bhakta, CT imaging pending. Antibiotics have been started. Normal saline given as well. 02/07/2024 Dr. Bhakta: Patient's labs and imaging were reviewed, urinalysis shows likely UTI, patient has changes consistent with UTI/pyelo, does have an elevation in his creatinine today but no obstructive changes. Does not have a white count but had positive lactate which trended down words to normal and positive procalcitonin. Hemoglobin is 12, platelets of 232. INR is 1.2 sodium is 136 BUN 22, glucose is 180. LFTs are negative negative troponin and BNP. Urine shows 10-30 WBCs 2 +leuks 1+ bili 1+ occult trace ketones 1+ protein. Respiratory panel is negative. CT chest abdomen pelvis shows inflammatory changes retroperitoneal fat in the kidneys along the ureters down the bladder concerning for ascending urinary infection. He is received a 1L bolus, Tylenol, and Rocephin. Patient's heart rate and temperature were elevated he did meet septic criteria initially these have improved. Discussed with patient and family. Patient would like to return home discussed I would be happy to keep him for admission for sepsis, UTI. Acute kidney injury, imaging does not show any obstructive changes or kidney stones.. Patient is responsible for his who has had a prior brain tumor and needs 24 hour supervision. He has significantly improved here in the department and is discharged home but told he is welcome to return at any time recommended have a low threshold to return Discharge Plan Departure Patient Disposition: Home Clinical Impression: Acute UTI, Sepsis, NIEVES (acute kidney injury) Activity Restrictions/Additional Instructions: Please follow up for recheck in this coming week, you did have elevation in your renal function should be followed up to make sure it has normalized. You did meet septic criteria when you arrived, I am happy to keep you overnight in the hospital but understand you have responsibilities at home. You appear to have a UTI causing your symptoms. Take antibiotics until completed. Prescription was sent to [facility] in [place]. Start your antibiotic in the morning. Can take Tylenol up to a 1000 mg every 6 hours for fever. Please return for worsening symptoms, any altered mental status, new chest pain or shortness of breath, persistent vomiting, difficulty with urination new abdominal back or flank pain or other new or concerning changes. Prescriptions: No Action cholecalciferol (vitamin D3) [Vitamin D3] 2,000 UNIT capsule 2,000 iu PO QDAY Qty: 0 gabapentin [Neurontin] 600 MG tablet 300 mg PO HS Qty: 30 3RF gabapentin [Neurontin] 600 MG tablet 600 mg PO HS Qty: 90 3RF Referrals: Aditi Baez PA-C [Primary Care Provider] - Stand Alone Forms: Patient Portal/API
[2024-02-06 17:22] LABS: Add Manual Diff / Slide Review NO; Basophils Absolute Auto 100 /uL (0-100); Basophils Percent Auto 0.5 % (0-2); Eosinophils Absolute Auto 100 /uL (0-450); Eosinophils Percent Auto 1.3 % (2-4); Hemoglobin 12.3 g/dL (13.5-17.5); Lymphocytes Absolute Auto 1700 /uL (1100-4500); Lymphocytes Percent Auto 15.4 % (25-40); Mean Corpuscular HGB Conc 34.3 % (30-36); Mean Corpuscular Hemoglobin 33.4 PG (26-34); Mean Corpuscular Volume 97.5 fL (80-100); Monocytes Absolute Auto 1400 /uL (0-900); Monocytes Percent Auto 13.3 % (3-14); Neutrophils Absolute Auto 7500 /uL (1500-7000); Neutrophils Percent Auto 69.5 % (50-75); Platelet Count 232 X10^3/uL (150-400); Red Cell Distribution Width 15.4 % (11.6-14.8); White Blood Cell Count 10.8 X10^3/uL (4.5-11.0)
[2024-02-06 17:24] LABS: INR 1.2 (0.9-1.3); Prothrombin Time 13.8 SECONDS (9.4-12.5)
[2024-02-06 17:28] LABS: Lactate (Lactic Acid) 3.4 mmol/L (0.7-2.1)
[2024-02-06 17:29] LABS: Alanine Aminotransferase 20 IU/L (<50); Albumin 4.5 g/dL (3.5-5.0); Albumin Globulin Ratio 1.5 (1.0-2.8); Alkaline Phosphatase 110 U/L (38-126); Aspartate Aminotransferase 27 IU/L (17-59); BUN Creatinine Ratio 13.2 (6-22); Bilirubin Total 0.6 mg/dL (0.2-1.3); Blood Urea Nitrogen 22 mg/dL (9-20); Calcium 9.5 mg/dL (8.4-10.2); Carbon Dioxide 23 mmol/L (22-32); Chloride 102 mmol/L (98-107); Estimated Glomerular Filt Rate 44 mL/min (>60); Globulin 3.1 g/dL (1.7-4.1); Glucose 180 mg/dL (80-110); HEMOLYSIS < 15 (0-50); Sodium 136 mmol/L (137-145); Total Protein 7.6 g/dL (6.3-8.2)
[2024-02-06 17:41] LABS: NT-proBNP (BNP-Adult 18+) 311 pg/mL (<125); Troponin I < 0.012 ng/mL (0.01-0.034)
[2024-02-06 17:46] LABS: Appearance Urine UA CLEAR; Bilirubin Urine UA 1+ (NEGATIVE); Color Urine UA YELLOW; Glucose Urine UA NEGATIVE (Negative); Ketones Urine UA TRACE (NEGATIVE); Leukocyte Esterase Urine UA 2+ (NEGATIVE); Nitrite Urine UA NEGATIVE (Negative); Occult Blood Urine UA 1+ (Negative); Protein Urine UA 1+ (Negative)
--- NOTE | 2024-02-06 17:47 | DI.CT.S_ITS ---
PROCEDURE: CT CHEST ABD PEL WO CON INDICATIONS: Sepsis TECHNIQUE: After the administration of oral contrast, 5 mm thick sections acquired from the lung apices to the symphysis pubis. 5 mm thick coronal and sagittal reformats acquired, with additional 7 mm coronal MIP reformats through the lungs. For radiation dose reduction, the following was used: automated exposure control, adjustment of mA and/or kV according to patient size. COMPARISON: None. FINDINGS: Image quality: Diagnostic. CHEST: Lower Neck: No enlarged lymph nodes. Thyroid: 2 cm right thyroid nodule. Axillae: No enlarged lymph nodes. Chest Wall: Unremarkable. Bones: Unremarkable. Lungs and Pleura: No pneumothorax or pleural effusions. No consolidation or suspicious nodules. Heart: Heart size is enlarged. No pericardial effusion. Mild coronary artery disease. Thoracic Vessels: The aorta and pulmonary arteries demonstrate normal size. Mediastinum and Gracy: No enlarged lymph nodes. Esophagus: No wall thickening. No hiatal hernia. ABDOMEN: Liver: No solid mass. Gallbladder: The gallbladder is contracted. Biliary ducts: No biliary dilation. Pancreas: No ductal dilation. Spleen: Size is within normal limits. Adrenal Glands: No adrenal nodules. Kidneys and Ureters: No hydronephrosis. No solid mass. No complex renal cystic lesion which requires follow up. There is fat stranding surrounding the bilateral kidneys descending along the ureters with inflammatory changes extending down to the bladder within the retroperitoneal fat Stomach and Bowel: Normal colonic caliber, without significant wall thickening. A few colonic diverticula. Normal appendix. Peritoneum: No abnormal intraperitoneal fluid. No free air. Ventral Wall: No hernia. Abdominal Nodes: No retroperitoneal or mesenteric adenopathy by size criteria. Vessels: Aorta and inferior vena cava are normal in size. PELVIS: Pelvic Organs: Unremarkable. Bladder: Unremarkable. Pelvic Nodes: No enlarged lymph nodes. Miscellaneous: No inguinal hernias are seen. Bones: No aggressive osseous abnormality. IMPRESSION: Inflammatory changes extending in the retroperitoneal fat from the kidneys along the ureters down to the bladder. This is concerning for ascending urinary infection, correlate with UA. Dictated by: Arturo Cali M.D. on 02/06/2024 at 17:49 Approved by: Arturo Cali M.D. on 02/06/2024 at 17:56
[2024-02-06] MEDS: IBUPROFEN 400 MG TABLET 800 MG PO (18:00)
[2024-02-06] MEDS: cefTRIAXone 2,000 MG in SODIUM CHLORIDE 0.9% 100 ML 200 MG IV (18:00)
[2024-02-06] MEDS: SODIUM CHLORIDE 0.9% 1,000 ML 1000 ML IV (18:00)
[2024-02-06 18:01] LABS: Ictotest Urine Negative (Negative); Urine Volume 10mL (spun)
[2024-02-06 18:02] LABS: RBC Urine 1-5/HPF (0-5/HPF); WBC Urine 10-30/HPF (0-5/HPF)
[2024-02-06 18:03] LABS: Bacteria Urine None Seen; Squamous Epithelial Cell Urine None Seen (0-5/HPF)
[2024-02-06 18:04] LABS: Culture Indicated Urine Specimen Cultured; Hyaline Casts Urine 1-5/LPF
[2024-02-06 18:11] LABS: Adenovirus Not Detected (Not Detect); B. parapertussis Not Detected (Not Detecte); Bordetella pertussis Not Detected (Not Detect); Chlamydophila pneumoniae Not Detected (Not Detect); Coronavirus 229E Not Detected (Not Detect); Coronavirus HKU1 Not Detected (Not Detect); Coronavirus NL 63 Not Detected (Not Detect); Coronavirus OC43 Not Detected (Not Detect); Human Metapneumovirus Not Detected (Not Detect); Human Rhinovirus/Enterovirus Not Detected (Not Detect); Influenza A Not Detected (Not Detect); Influenza B Not Detected (Not Detect); Mycoplasma pneumoniae Not Detected (Not Detect); Parainfluenza Virus 1 Not Detected (Not Detect); Parainfluenza Virus 2 Not Detected (Not Detect); Parainfluenza Virus 3 Not Detected (Not Detect); Parainfluenza Virus 4 Not Detected (Not Detect); Respiratory Syncytial Virus Not Detected (Not Detect); SARS- CoV-2 Not Detected (Not Detecte)
[2024-02-06 18:25] LABS: Procalcitonin 1.63 ng/mL (<0.5)
[2024-02-06 18:41] LABS: Reflexed Lactate in 2 Hours Y
[2024-02-06 19:09] LABS: Lactate 2HR (Lactic Acid Rflx) 1.3 mmol/L (0.7-2.1)
--- NOTE | 2024-02-06 19:35 | PC.NURSE ---
Dr. Bhakta at bedside
== END 2024-02-06 20:07 | disposition home or self-care (01) ==
PROVIDERS: Emergency Medicine; Emergency Provider Emergency Medicine; PCP Physician Assistant
DX: N39.0 Urinary tract infection, site not specified (principal); N17.9 Acute kidney failure, unspecified; A41.9 Sepsis, unspecified organism; Z20.822 Contact with and (suspected) exposure to COVID-19
CPT/HCPCS: 36415; 71045; 71250; 74176; 80053; 81001; 83605; 83880; 84145; 84484; 85025; 85610; 87077; 87086; 87186; 87633; 93005; 96365; 96366; 99284; J0696

== ENCOUNTER → 2025-08-27 09:43 | Outpatient (CLI) | payer MEDICARE, OTHER, SELFPAY ==
--- NOTE | 2025-08-27 09:46 | DI.CT.S_ITS ---
PROCEDURE: CT SINUS SCREEN WO CON
== END ==
LOC: CT 09:46
PROVIDERS: PCP Internal Medicine; Referring Provider Otolaryngology; Visit Provider Otolaryngology
DX: J32.4 Chronic pansinusitis (principal); R09.82 Postnasal drip
CPT/HCPCS: 70486